=== PATIENT | female | born 1945 | race Two or more races ===

== ENCOUNTER 2018-02-21 14:44 | Emergency (ER) | payer MEDICARE, OTHER ==
[~2018-02-21] VITALS: Ht 170.2 cm; Wt 81.6 kg
--- NOTE | 2018-02-21 15:00 | NUR ---
Bbra 860 from home for face pain s/p glf at bus stop. Noted bruise on nose and forehead area. DENIES LOC. VSS. FAMILY MEMBER AT BS. SEEN BY MD FOR EVAL. SAFETY AND COMFORT MEASURES PROVIDED. WILL MONITOR.
[2018-02-21] MEDS ORDERED: ACETAMINOPHEN ES 500 MG TABLET ONE (15:16)
[2018-02-21] MEDS ORDERED: TDAP [DIPH/PERTUSSIS/TET] 0.5 ML VIAL IM ONE ×2 (15:16→15:30)
[2018-02-21] MEDS ORDERED: ACETAMINOPHEN ES 500 MG TABLET PO ONE (15:30)
--- NOTE | 2018-02-21 15:30 | NUR ---
PT MEDICATED ORDERED.
--- NOTE | 2018-02-21 17:00 | NUR ---
Pt ambulatory with a steady gait.
--- NOTE | 2018-02-21 18:00 | NUR ---
ange morales at bs for splint.
[2018-02-21 18:23] VITALS: BP 146/71
--- NOTE | 2018-02-21 18:25 | NUR ---
Patient discharged to home in stable condition. Written and verbal after care instructions given. Patient verbalizes understanding of instruction.
== END 2018-02-21 18:24 | disposition home or self-care (01) ==
LOC: ER 14:46
DX: S02.2XXA Fracture of nasal bones, initial encounter for closed fracture (principal); S62.391A Other fracture of second metacarpal bone, left hand, initial encounter for closed fracture; S00.83XA Contusion of other part of head, initial encounter; I10 Essential (primary) hypertension; W18.30XA Fall on same level, unspecified, initial encounter; Y93.89 Activity, other specified; Y92.89 Other specified places as the place of occurrence of the external cause; Y99.8 Other external cause status
CPT/HCPCS: 70450-TC; 70486-TC; 72125-TC; 73130-TC; 90715; A4606; Z7610